=== PATIENT | female | born 1985 | race Caucasian/White ===

== ENCOUNTER 2020-02-04 02:50 | Inpatient (IN) | payer BC ==
[2020-02-04] MEDS ORDERED: Calcium Carbonate 500 MG Tab.Chew PO PRN (05:49)
[2020-02-04] MEDS ORDERED: Sodium Chloride 0.9% 10 ML Syringe FLUSH PRN (05:49)
[2020-02-04] MEDS ORDERED: Nalbuphine 10 MG/ML Syringe IVPUSH PRN (05:49)
[2020-02-04] MEDS ORDERED: Ondansetron 4 MG/2 ML SDV IVPUSH PRN (05:49)
[2020-02-04] MEDS ORDERED: Oxytocin/Lactated Ringers 10 UNIT/1,000 ML BAG IV SCH (06:00)
--- NOTE | 2020-02-04 07:08 | PCM.LDHP ---
L&D History of Present Illness - General Date of Service: 02/04/20 Admit Problem/Dx: Patient Status Order with Admit Dx/Problem 02/04/20 03:33 Patient Status [ADT] Routine 02/04/20 05:50 Patient Status [ADT] Routine Admission Diagnosis/Problem Admission Diagnosis/Problem Source of Information: Patient History Limitations: Reports: No Limitations - History of Present Illness Introduction:: Patient is a 35 y/o at 38 2/7 wks who presents in early labor. Came in to hospital in early AM and was 3 cm. Found to make change to 4 cm on RN next assessment in 2 hours. Currently doing well. Notes contractions manageable - Related Data Allergies/Adverse Reactions: Allergies Allergy/AdvReac Type Severity Reaction Status Date / Time No Known Allergies Allergy Verified 02/04/20 05:44 Home Medications: Home Meds Magnesium 325 mg PO DAILY 02/04/20 [History] [id number]/Iron Fumarate/FA/DSS [ 19 Tablet] 1 each PO DAILY 02/04/20 [ History] Ranitidine [Zantac] 150 mg PO DAILY PRN 02/04/20 [History] Past Medical History [employer] History: Reports: : 2 Para: 1 LMP (Approximate): Psychiatric History: Reports: Anxiety Other Psychiatric History: Not currently on medication, states she has had some panic attacks recently, plans to start medication after Endocrine/Metabolic History: Reports: Diabetes, Gestational (history of) - Infectious Disease History Infectious Disease History: Reports: Human Papilloma Virus (HPV) - Past Surgical History Female Surgical History: Reports: LEEP Social & Family History - Family History Family Medical History: Noncontributory - Tobacco Use Smoking Status *Q: Former Smoker Years of Tobacco use: 2 Used Tobacco, but Quit: Yes Month/Year Tobacco Last Used: 2004 - Alcohol Use Alcohol Use History: No - Recreational Drug Use Recreational Drug Use: No H&P Review of Systems - Review of Systems: Review Of Systems: See Below General: Reports: No Symptoms Pulmonary: Reports: No Symptoms Cardiovascular: Reports: No Symptoms Gastrointestinal: Reports: Abdominal Pain Genitourinary: Reports: No Symptoms Musculoskeletal: Reports: No Symptoms Psychiatric: Reports: No Symptoms Neurological: Reports: No Symptoms L&D Exam - Exam Exam: See Below - Vital Signs Vital Signs: Last Vital Signs Temp 36.7 C 02/04/20 03:08 Pulse 92 02/04/20 03:08 Resp 16 02/04/20 03:08 BP 115/75 02/04/20 03:08 Pulse Ox 98 02/04/20 03:08 Weight: 93.44 kg - OB Specific Contraction Intensity: Mild to Moderate Movement: Active Heart Tones: Present Heart Tones per Min: 145 Heart Rate (FHR) Variability: Moderate (6-25 bmp) Presentation: Vertex - Adame Score Adame Score Cervix Position: Midposition Adame Score Consistency: Soft Adame Score Effacement: 31-50% Adame Score Dilation: 3-4 cm Adame Score Infant's Station: -2 Adame Score Total: 7 - Exam General: Alert, Oriented, Cooperative Lungs: Clear to Auscultation, Normal Respiratory Effort Cardiovascular: Regular Rate, Regular Rhythm GI/Abdominal Exam: Soft, Non-Tender Genitourinary: Normal external exam Back Exam: Normal Inspection Extremities: Normal Inspection Skin: Warm, Dry, Intact - Patient Data Lab Results Last 24 hrs: Laboratory Results - last 24 hr 02/04/20 Range/Units 06:05 WBC 11.65 H (3.98-10.04) K/mm3 RBC 4.02 (3.98-5.22) M/mm3 Hgb 12.1 (11.2-15.7) gm/dl Hct 36.8 (34.1-44.9) % MCV 91.5 (79.4-94.8) fl MCH 30.1 (25.6-32.2) pg MCHC 32.9 (32.2-35.5) g/dl RDW Std Deviation 45.0 (36.4-46.3) fL Plt Count 211 (182-369) K/mm3 MPV 11.5 (9.4-12.3) fl Neut % (Auto) 71.0 (34.0-71.1) % Lymph % (Auto) 18.6 L (19.3-51.7) % [place] % (Auto) 8.7 (4.7-12.5) % Eos % (Auto) 1.0 (0.7-5.8) Baso % (Auto) 0.1 (0.1-1.2) % Neut # (Auto) 8.27 H (1.56-6.13) K/mm3 Lymph # (Auto) 2.17 (1.18-3.74) K/mm3 [place] # (Auto) 1.01 H (0.24-0.36) K/mm3 Eos # (Auto) 0.12 (0.04-0.36) K/mm3 Baso # (Auto) 0.01 (0.01-0.08) K/mm3 Result Diagrams: 02/04/20 06:05 - Problem List (1) 38 weeks gestation of SNOMED Code(s): 68344145 ICD Code: Z3A.38 - 38 WEEKS GESTATION OF Status: Acute Current Visit: Yes Problem List Initiated/Reviewed/Updated: Yes Orders Last 24hrs: Active Orders 24 hr Category Date Time Status Patient Status [ADT] Routine ADT 02/04/20 03:33 Active Patient Status [ADT] Routine ADT 02/04/20 05:50 Active Activity as Tolerated [RC] PFP Care 02/04/20 05:49 Active Communication Order [RC] ASDIRECTED Care 02/04/20 05:49 Active Heart Tones [RC] ASDIRECTED Care 02/04/20 05:50 Active Non Stress Test [RC] PER UNIT ROUTINE Care 02/04/20 03:33 Active Non Stress Test [RC] PER UNIT ROUTINE Care 02/04/20 05:49 Active Notify Provider [RC] PFP Care 02/04/20 05:49 Active Notify Provider [RC] PRN Care 02/04/20 05:49 Active Peripheral IV Care [RC] . DIRECTED Care 02/04/20 05:50 Active Pump Management, Intrathecal [RC] ASDIRECTED Care 02/04/20 05:51 Active Vital Signs [RC] PER UNIT ROUTINE Care 02/04/20 03:33 Active Vital Signs [RC] PER UNIT ROUTINE Care 02/04/20 05:49 Active Regular Diet [DIET] Diet 02/04/20 Breakfast Active RAPID PLASMA REAGIN,RPR [CHEM] Routine Lab 02/04/20 06:05 Received TYPE AND SCREEN [BBK] Stat Lab 02/04/20 06:05 Received Calcium Carbonate [Tums] Med 02/04/20 05:49 Active 1,000 mg PO Q2H PRN Lactated Ringers [Ringers, Lactated] 1,000 ml Med 02/04/20 06:00 Active IV ASDIRECTED Nalbuphine [Nubain] Med 02/04/20 05:49 Active 10 mg IVPUSH Q2H PRN Ondansetron [Zofran] Med 02/04/20 05:49 Active 4 mg IVPUSH Q4H PRN Oxytocin/Lactated Ringers [Pitocin in LR 10 Units/1,000 Med 02/04/20 06:00 Active ML] 10 unit in 1,000 ml IV TITRATE Sodium Chloride 0.9% [Saline Flush] Med 02/04/20 05:49 Active 10 ml FLUSH ASDIRECTED PRN Electronic Heart Tones Ext w TOCO [WOMSER] Ot 02/04/20 05:49 Ordered Routine Electronic Heart Tones Internal [WOMSER] Per Unit Ot 02/04/20 05:49 Ordered Routine Peripheral IV Insertion Adult [OM.PC] Routine Ot 02/04/20 05:49 Ordered Resuscitation Status Routine Resus Stat 02/04/20 03:33 Ordered Medication Orders Calcium Carbonate/Glycine (Tums) 1,000 mg PO Q2H PRN PRN Reason: Indigestion Lactated Ringer's (Ringers, Lactated) 1,000 mls @ 100 mls/hr IV ASDIRECTED MUNIRA Oxytocin/Lactated Ringer's (Pitocin In Lr 10 Units/1,000 Ml) 10 unit in 1,000 mls @ 12 mls/hr IV TITRATE MUNIRA; Protocol Nalbuphine HCl (Nubain) 10 mg IVPUSH Q2H PRN PRN Reason: Pain Ondansetron HCl (Zofran) 4 mg IVPUSH Q4H PRN PRN Reason: Nausea/Vomiting Sodium Chloride (Saline Flush) 10 ml FLUSH ASDIRECTED PRN PRN Reason: Keep Vein Open Assessment/Plan Comment:: * Labs done * GBS negative * AROM performed * Pain management per patient preference * Anticipate
[2020-02-04] MEDS ORDERED: fentaNYL 100 MCG/2 ML SDV EPIDUR PRN (07:31)
[2020-02-04] MEDS ORDERED: Bupivacaine/fentaNYL/NS 100 ML Bag EPIDUR PRN (07:31)
[2020-02-04] MEDS ORDERED: ePHEDrine 50 MG/ML SDV IVPUSH PRN (07:31)
[2020-02-04] MEDS ORDERED: diphenhydrAMINE 50 MG/ML SDV IVPUSH PRN (07:31)
--- NOTE | 2020-02-04 07:51 | PCM.PREANE ---
Preanesthetic Assessment - Procedure Proposed Procedure: kim - Anesthesia/Transfusion/Family Hx Anesthesia History: Prior Anesthesia Without Reaction Family History of Anesthesia Reaction: No Transfusion History: No Prior Transfusion(s) - Review of Systems General: No Symptoms Pulmonary: Cough (little bit- allergy induced) Cardiovascular: No Symptoms, Palpitations (heart races prn- anxiety) Gastrointestinal: No Symptoms Neurological: No Symptoms Other: Reports: Anxiety - Physical Assessment Vital Signs: Last Vital Signs Temp 98.1 F 02/04/20 03:08 Pulse 92 02/04/20 03:08 Resp 16 02/04/20 03:08 BP 115/75 02/04/20 03:08 Pulse Ox 98 02/04/20 03:08 Height: 5 ft 5 in Weight: 93.44 kg ASA Class: 2 Mental Status: Alert & Oriented x3 Airway Class: Mallampati = 1 Dentition: Reports: Normal Dentition Thyro-Mental Finger Breadths: 3 Mouth Opening Finger Breadths: 3 ROM/Head Extension: Full Lungs: Clear to Auscultation, Normal Respiratory Effort Cardiovascular: Regular Rate, Regular Rhythm - Lab Values: Laboratory Last Values WBC 11.65 K/mm3 (3.98-10.04) H 02/04/20 06:05 RBC 4.02 M/mm3 (3.98-5.22) 02/04/20 06:05 Hgb 12.1 gm/dl (11.2-15.7) 02/04/20 06:05 Hct 36.8 % (34.1-44.9) 02/04/20 06:05 MCV 91.5 fl (79.4-94.8) 02/04/20 06:05 MCH 30.1 pg (25.6-32.2) 02/04/20 06:05 MCHC 32.9 g/dl (32.2-35.5) 02/04/20 06:05 RDW Std Deviation 45.0 fL (36.4-46.3) 02/04/20 06:05 Plt Count 211 K/mm3 (182-369) 02/04/20 06:05 MPV 11.5 fl (9.4-12.3) 02/04/20 06:05 Neut % (Auto) 71.0 % (34.0-71.1) 02/04/20 06:05 Lymph % (Auto) 18.6 % (19.3-51.7) L 02/04/20 06:05 [place] % (Auto) 8.7 % (4.7-12.5) 02/04/20 06:05 Eos % (Auto) 1.0 (0.7-5.8) 02/04/20 06:05 Baso % (Auto) 0.1 % (0.1-1.2) 02/04/20 06:05 Neut # (Auto) 8.27 K/mm3 (1.56-6.13) H 02/04/20 06:05 Lymph # (Auto) 2.17 K/mm3 (1.18-3.74) 02/04/20 06:05 [place] # (Auto) 1.01 K/mm3 (0.24-0.36) H 02/04/20 06:05 Eos # (Auto) 0.12 K/mm3 (0.04-0.36) 02/04/20 06:05 Baso # (Auto) 0.01 K/mm3 (0.01-0.08) 02/04/20 06:05 - Allergies Allergies/Adverse Reactions: Allergies Allergy/AdvReac Type Severity Reaction Status Date / Time No Known Allergies Allergy Verified 02/04/20 05:44 - Blood Blood Available: No - Acknowledgements Anesthesia Type Planned: Epidural Pt an Appropriate Candidate for the Planned Anesthesia: Yes Alternatives and Risks of Anesthesia Discussed w Pt/Guardian: Yes Pt/Guardian Understands and Agrees with Anesthesia Plan: Yes PreAnesthesia Questionnaire Cardiovascular History: Reports: None Respiratory History: Reports: None Gastrointestinal History: Reports: GERD (with preg) : 2 (38 weeks) Para: 1 Psychiatric History: Reports: Anxiety Other Psychiatric History: Not currently on medication, states she has had some panic attacks recently, plans to start medication after Oncologic (Cancer) History: Reports: None - Infectious Disease History Infectious Disease History: Reports: Human Papilloma Virus (HPV) Other Infectious Disease History: over 15 years ago HPV - Past Surgical History Female Surgical History: Reports: LEEP - SUBSTANCE USE Smoking Status *Q: Former Smoker Tobacco Use Within Last Twelve Months: No Second Hand Smoke Exposure: No Days Per Week of Alcohol Use: 0 Recreational Drug Use History: No - HOME MEDS Home Medications: Home Meds Magnesium 325 mg PO DAILY 02/04/20 [History] QOT912/Iron Fumarate/FA/DSS [ 19 Tablet] 1 each PO DAILY 02/04/20 [ History] Ranitidine [Zantac] 150 mg PO DAILY PRN 02/04/20 [History] - CURRENT (IN HOUSE) MEDS Current Meds: Current Medications Calcium Carbonate/Glycine (Tums) 1,000 mg PO Q2H PRN PRN Reason: Indigestion Diphenhydramine HCl (Benadryl) 25 mg IVPUSH Q6H PRN PRN Reason: Itching Ephedrine Sulfate (Ephedrine Sulfate) 5 mg IVPUSH ASDIRECTED PRN PRN Reason: HYPOTENTSION Fentanyl (Sublimaze) 100 mcg EPIDUR Q3H PRN PRN Reason: Pain Fentanyl/Bupivacaine HCl (Fentanyl/Bupivacaine/Ns 2 Mcg-0.125% 100 Ml) 100 ml EPIDUR CONTINUOUS PRN PRN Reason: Pain Lactated Ringer's (Ringers, Lactated) 1,000 mls @ 100 mls/hr IV ASDIRECTED MUNIRA Oxytocin/Lactated Ringer's (Pitocin In Lr 10 Units/1,000 Ml) 10 unit in 1,000 mls @ 12 mls/hr IV TITRATE MUNIRA; Protocol Nalbuphine HCl (Nubain) 10 mg IVPUSH Q2H PRN PRN Reason: Pain Ondansetron HCl (Zofran) 4 mg IVPUSH Q4H PRN PRN Reason: Nausea/Vomiting Sodium Chloride (Saline Flush) 10 ml FLUSH ASDIRECTED PRN PRN Reason: Keep Vein Open
[2020-02-04] MEDS ORDERED: Lidocaine 1.5% with EPINEPHrine 1:200,000 5 ML Amp ONE (10:00)
[2020-02-04] MEDS: Lactated Ringers 1,000 ML IV SCH ×2 (10:21→14:09)
--- NOTE | 2020-02-04 16:51 | PCM.DEL ---
L & D Note - General Info Date of Service: 02/04/20 - Delivery Note Labor: Augmented by ARM, Augmented by Oxytocin Delivery Outcome: Livebirth Infant Delivery Method: Spontaneous Vaginal Delivery-Single Delivery Mode: Spontaneous Presentation: Left Occiput Anterior (ROBERT) Nuchal Cord: Present, Reduced Anesthesia Type: Epidural Amniotic Fluid Description: Clear Episiotomy Type: None Laceration: None Placenta: Intact, Spontaneous Cord: 3 Vessels Estimated Blood Loss: 100 [place]: Suctioned, Bulb Syringe, Stimulated, Warmed, [place] Used, Warmer Used Delivery Comments (Free Text/Narrative):: Patient found to be complete and began pushing. With maternal pushing effort head delivered from an ROBERT presentation. Nuchal cord present and reduced. With gentle downward traction shoulders did not immediately deliver and head noted to retract against perineum. Patient put in deeper Panfilo which still did not relieve dystocia. Suprapubic then applied with deep Panfilo and anterior shoulder be delivered with remaining body quickly following. Total time about 45 seconds. Cord clamped and cut and baby taken to warmer for assessment. Cord blood collected. Placenta allowed time to separate and expelled intact. Inspection of the perineum showed no lacerations - General Info Date of Service: 02/04/20 - Patient Data Vitals - Most Recent: Last Vital Signs Temp 36.7 C 02/04/20 03:08 Pulse 92 02/04/20 03:08 Resp 16 02/04/20 03:08 BP 115/75 02/04/20 03:08 Pulse Ox 98 02/04/20 03:08 Weight - Most Recent: 93.44 kg Lab Results Last 24 Hours: Laboratory Results - last 24 hr 02/04/20 02/04/20 Range/Units 06:05 06:05 WBC 11.65 H (3.98-10.04) K/mm3 RBC 4.02 (3.98-5.22) M/mm3 Hgb 12.1 (11.2-15.7) gm/dl Hct 36.8 (34.1-44.9) % MCV 91.5 (79.4-94.8) fl MCH 30.1 (25.6-32.2) pg MCHC 32.9 (32.2-35.5) g/dl RDW Std Deviation 45.0 (36.4-46.3) fL Plt Count 211 (182-369) K/mm3 MPV 11.5 (9.4-12.3) fl Neut % (Auto) 71.0 (34.0-71.1) % Lymph % (Auto) 18.6 L (19.3-51.7) % [place] % (Auto) 8.7 (4.7-12.5) % Eos % (Auto) 1.0 (0.7-5.8) Baso % (Auto) 0.1 (0.1-1.2) % Neut # (Auto) 8.27 H (1.56-6.13) K/mm3 Lymph # (Auto) 2.17 (1.18-3.74) K/mm3 [place] # (Auto) 1.01 H (0.24-0.36) K/mm3 Eos # (Auto) 0.12 (0.04-0.36) K/mm3 Baso # (Auto) 0.01 (0.01-0.08) K/mm3 Blood Type O POSITIVE Gel Antibody Screen Negative Med Orders - Current: Current Medications Calcium Carbonate/Glycine (Tums) 1,000 mg PO Q2H PRN PRN Reason: Indigestion Diphenhydramine HCl (Benadryl) 25 mg IVPUSH Q6H PRN PRN Reason: Itching Ephedrine Sulfate (Ephedrine Sulfate) 5 mg IVPUSH ASDIRECTED PRN PRN Reason: HYPOTENTSION Fentanyl (Sublimaze) 100 mcg EPIDUR Q3H PRN PRN Reason: Pain Last Admin: 02/04/20 12:39 Dose: 100 mcg Fentanyl/Bupivacaine HCl (Fentanyl/Bupivacaine/Ns 2 Mcg-0.125% 100 Ml) 100 ml EPIDUR CONTINUOUS PRN PRN Reason: Pain Last Admin: 02/04/20 12:39 Dose: 100 ml Lactated Ringer's (Ringers, Lactated) 1,000 mls @ 100 mls/hr IV ASDIRECTED MUNIRA Last Admin: 02/04/20 14:09 Dose: 100 mls/hr Oxytocin/Lactated Ringer's (Pitocin In Lr 10 Units/1,000 Ml) 10 unit in 1,000 mls @ 12 mls/hr IV TITRATE MUNIRA; Protocol Last Titration: 02/04/20 12:43 Dose: 6 munits/min, 36 mls/hr Nalbuphine HCl (Nubain) 10 mg IVPUSH Q2H PRN PRN Reason: Pain Ondansetron HCl (Zofran) 4 mg IVPUSH Q4H PRN PRN Reason: Nausea/Vomiting Sodium Chloride (Saline Flush) 10 ml FLUSH ASDIRECTED PRN PRN Reason: Keep Vein Open - Problem List & Annotations (1) 38 weeks gestation of SNOMED Code(s): 64072572 Code(s): Z3A.38 - 38 WEEKS GESTATION OF Status: Acute Current Visit: Yes (2) Vaginal delivery SNOMED Code(s): 490627854 Code(s): O80 - ENCOUNTER FOR FULL-TERM UNCOMPLICATED DELIVERY Status: Acute Current Visit: Yes (3) Shoulder dystocia, delivered, current hospitalization SNOMED Code(s): 649221973, 304942018 Code(s): O66.0 - OBSTRUCTED LABOR DUE TO SHOULDER DYSTOCIA Status: Acute Current Visit: Yes - Problem List Review Problem List Initiated/Reviewed/Updated: Yes - My Orders Last 24 Hours: My Active Orders 02/04/20 03:33 Patient Status [ADT] Routine Resuscitation Status Routine 02/04/20 05:49 Activity as Tolerated [RC] PFP Communication Order [RC] ASDIRECTED Notify Provider [RC] PFP Notify Provider [RC] PRN Calcium Carbonate [Tums] 1,000 mg PO Q2H PRN Nalbuphine [Nubain] 10 mg IVPUSH Q2H PRN Ondansetron [Zofran] 4 mg IVPUSH Q4H PRN Sodium Chloride 0.9% [Saline Flush] 10 ml FLUSH ASDIRECTED PRN Electronic Heart Tones Ext w TOCO [WOMSER] Routine Electronic Heart Tones Internal [WOMSER] Per Unit Routine Peripheral IV Insertion Adult [OM.PC] Routine 02/04/20 05:50 Patient Status [ADT] Routine Heart Tones [RC] ASDIRECTED Peripheral IV Care [RC] . DIRECTED 02/04/20 05:51 Pump Management, Intrathecal [RC] ASDIRECTED 02/04/20 06:00 Lactated Ringers [Ringers, Lactated] 1,000 ml IV ASDIRECTED Oxytocin/Lactated Ringers [Pitocin in LR 10 Units/1,000 ML] 10 unit in 1,000 ml IV TITRATE 02/04/20 06:05 RAPID PLASMA REAGIN,RPR [CHEM] Routine 02/04/20 07:58 PATIENT RETYPE [BBK] Routine 02/04/20 Breakfast Regular Diet [DIET] - Assessment Assessment:: PPD#0 - Plan Plan:: * Routine care * breast feeding * Discharge home in 1-2 days
[2020-02-04] MEDS ORDERED: Docusate Sodium 100 MG Cap PO PRN (17:01)
[2020-02-04] MEDS ORDERED: Witch Hazel Medicated Pads 40/Jar TOP PRN (17:01)
[2020-02-04] MEDS ORDERED: Ibuprofen 600 MG Tab PO PRN (17:01)
[2020-02-04] MEDS ORDERED: Benzocaine/Menthol 20%-0.5% Spray 56 GM Canister TOP PRN (17:01)
[2020-02-04] MEDS ORDERED: Acetaminophen 325 MG Tab PO PRN (17:01)
--- NOTE | 2020-02-05 09:37 | PCM.SN ---
- Free Text/Narrative Note: Post Progress Note PPD #1 Subjective: Doing well overall. Ambulating without difficulty. Lochia minimal. Voiding without difficulty. Tolerating regular diet without nausea or vomiting. Pain overall controlled with oral medications but does feel some soreness in her low back and pelvis. Breast-feeding with minimal difficulty. Objective: Vitals: Vital Signs - 24 hr 02/04/20 02/05/20 02/05/20 20:13 03:40 08:10 Temperature 36.6 C 36.8 C 36.4 C Pulse, 94 85 89 Peripheral Respiratory 14 14 14 Rate Blood Pressure 124/74 101/76 117/66 O2 Sat by Pulse 96 94 L 98 Oximetry Physical Exam General: Alert and oriented, no acute distress Lungs: Clear to auscultation bilaterally Heart: Regular rate and rhythm Abdomen: Soft, minimal appropriate tenderness, non-distended, fundus midline, nontender, and at the umbilicus Extremities: Trace edema in bilateral lower extremities to mid shins ASSESSMENT: 35-year-old female -0-0-2 s/p normal vaginal delivery PPD #1, complicated by shoulder dystocia with delivery, history of gestational diabetes and advanced maternal age PLAN: Doing well Breast-feeding with minimal difficulty. Assist as needed Lochia minimal. Continue to monitor for appropriate lochia. Continue routine care Anticipate discharge home today Maciej Wilson MD 9:36 AM 02/05/2020 TeleHealth - TeleHealth Patient Service Facility: [facility]: [facility] Informed Consent: Telemedicine Audio/Visual Informed Consent: The risks, benefits, and alternatives to the telehealth visit were explained to the patient and the patient consented to this modality of care. The telehealth visit was carried out via a secure, web-based conferencing system. This telemedicine service was a real-time, two-way interactive video and communication between the patient and the provider. All the parties involved were identified and approved by the patient prior to the visit. Any physical exam was assisted by the patient. Unless noted otherwise, the provider was located at their usual clinic location , and the patient was at their place of residence. Patient identity was confirmed by having the patient state their name and date of . All communications with the patient (verbal, audiovisual, and written) were documented in the patients medical record per documentation standards.
--- NOTE | 2020-02-05 09:45 | PCM.DCSUM1 ---
Discharge Summary - Hospital Course Free Text/Narrative:: - Delivery Note Labor: Augmented by ARM, Augmented by Oxytocin Delivery Outcome: Livebirth Delivery Method: Spontaneous Vaginal Delivery-Single Infant Delivery Mode: Spontaneous Presentation: Left Occiput Anterior (ROBERT) Nuchal Cord: Present, Reduced Anesthesia Type: Epidural Amniotic Fluid Description: Clear Episiotomy Type: None Laceration: None Placenta: Intact, Spontaneous Cord: 3 Vessels Estimated Blood Loss: 100 : Suctioned, Bulb Syringe, Stimulated, Warmed, Sacaton Used, Warmer Used Delivery Comments (Free Text/Narrative):: Patient found to be complete and began pushing. With maternal pushing effort head delivered from an ROBERT presentation. Nuchal cord present and reduced. With gentle downward traction shoulders did not immediately deliver and head noted to retract against perineum. Patient put in deeper Panfilo which still did not relieve dystocia. Suprapubic then applied with deep Panfilo and anterior shoulder be delivered with remaining body quickly following. Total time about 45 seconds. Cord clamped and cut and baby taken to warmer for assessment. Cord blood collected. Placenta allowed time to separate and expelled intact. Inspection of the perineum showed no lacerations HPI Initial Comments: - Delivery Note Labor: Augmented by ARM, Augmented by Oxytocin Delivery Outcome: Livebirth Infant Delivery Method: Spontaneous Vaginal Delivery-Single Delivery Mode: Spontaneous Presentation: Left Occiput Anterior (ROBERT) Nuchal Cord: Present, Reduced Anesthesia Type: Epidural Amniotic Fluid Description: Clear Episiotomy Type: None Laceration: None Placenta: Intact, Spontaneous Cord: 3 Vessels Estimated Blood Loss: 100 : Suctioned, Bulb Syringe, Stimulated, Warmed, Sacaton Used, Warmer Used Delivery Comments (Free Text/Narrative):: Patient found to be complete and began pushing. With maternal pushing effort head delivered from an ROBERT presentation. Nuchal cord present and reduced. With gentle downward traction shoulders did not immediately deliver and head noted to retract against perineum. Patient put in deeper Panfilo which still did not relieve dystocia. Suprapubic then applied with deep Panfilo and anterior shoulder be delivered with remaining body quickly following. Total time about 45 seconds. Cord clamped and cut and baby taken to warmer for assessment. Cord blood collected. Placenta allowed time to separate and expelled intact. Inspection of the perineum showed no lacerations Brief History: - Delivery Note. Labor: Augmented by ARM, Augmented by Oxytocin. Delivery Outcome: Livebirth. Delivery Method: Spontaneous Vaginal Delivery-Single. Delivery Mode: Spontaneous. Presentation : Left Occiput Anterior (ROBERT). Nuchal Cord: Present, Reduced. Anesthesia Type : Epidural. Amniotic Fluid Description: Clear. Episiotomy Type: None. Laceration: None. Placenta: Intact, Spontaneous. Cord: 3 Vessels. Estimated Blood Loss: 100. Hubbard: Suctioned, Bulb Syringe, Stimulated, Warmed, Sacaton Used, Warmer Used. Delivery Comments (Free Text/Narrative):: Patient found to be complete and began pushing. With maternal pushing effort head delivered from an ROBERT presentation. Nuchal cord present and reduced. With gentle downward traction shoulders did not immediately deliver and head noted to retract against perineum. Patient put in deeper Panfilo which still did not relieve dystocia. Suprapubic then applied with deep Panfilo and anterior shoulder be delivered with remaining body quickly following. Total time about 45 seconds. Cord clamped and cut and baby taken to warmer for assessment. Cord blood collected. Placenta allowed time to separate and expelled intact. Inspection of the perineum showed no lacerations Diagnosis: Stroke: No - Discharge Data Discharge Date: 02/05/20 Discharge Disposition: Home, Self-Care 01 Condition: Good - Referral to Home Health Primary Care Physician: Mami Trinh MD - Discharge Diagnosis/Problem(s) (1) 38 weeks gestation of SNOMED Code(s): 79958463 ICD Code: Z3A.38 - 38 WEEKS GESTATION OF Status: Acute Current Visit: Yes (2) Shoulder dystocia, delivered, current hospitalization SNOMED Code(s): 160318670, 319631997 ICD Code: O66.0 - OBSTRUCTED LABOR DUE TO SHOULDER DYSTOCIA Status: Acute Current Visit: Yes (3) Vaginal delivery SNOMED Code(s): 160626117 ICD Code: O80 - ENCOUNTER FOR FULL-TERM UNCOMPLICATED DELIVERY Status: Acute Current Visit: Yes - Patient Summary/Data Complications: Mild shoulder dystocia during delivery the lasted for approximately 45 seconds. Consults: None Hospital Course: Criss Hood was admitted for spontaneous labor. On admission her cervix was dilated to 3 cm. She was GBS negative. She was given pitocin for augmentation. She was given an epidural for anesthesia. She had artificial rupture of membranes with clear fluid. She progressed to complete and began pushing. On 02/04/2020 she had a normal vaginal delivery of a live female infant at 16:15. Apgars of 6 and 8. Weight of 3740 g (8 pounds 3.9 ounces). Her delivery was complicated by a mild shoulder dystocia that lasted for approximately 45 seconds. Her course was uneventful. Her pain was well controlled and she had minimal lochia. She was ambulating, tolerating a regular diet and voiding normally. She was breast-feeding with minimal difficulty. She was afebrile and her hematocrit was 36.8 on admission. She desired to be discharged home on the morning of PPD #1. Her blood type is O+. - Patient Instructions Diet: Regular Diet as Tolerated Activity: Apply Ice, As Tolerated Activity, Other: Nothing in the vagina for 6 weeks Driving: May Drive Today Showering/Bathing: May Shower Notify Provider of: Fever, Increased Pain, Swelling and Redness, Drainage, Nausea and/or Vomiting Other/Special Instructions: Please contact your physician's office if you have heavy vaginal bleeding enough to soak a pad in less than an hour for several hours. Monitor for any signs of an infection in the breasts with severe pain or redness of the breast. - Discharge Plan *PRESCRIPTION DRUG MONITORING PROGRAM REVIEWED*: Not Applicable *COPY OF PRESCRIPTION DRUG MONITORING REPORT IN PATIENT GALA: Not Applicable Home Medications: Home Meds Magnesium 325 mg PO DAILY 02/04/20 [History] [id number]/Iron Fumarate/FA/DSS [ 19 Tablet] 1 each PO DAILY 02/04/20 [ History] Ranitidine [Zantac] 150 mg PO DAILY PRN 02/04/20 [History] Acetaminophen [Tylenol] 650 mg PO Q6H PRN tablet 02/05/20 [Rx] Benzocaine/Menthol [Dermoplast Pain Relief [place]] 1 spray TOP ASDIRECTED PRN canister 02/05/20 [Rx] Docusate Sodium [Colace] 100 mg PO BID PRN cap 02/05/20 [Rx] Ibuprofen [Motrin] 600 mg PO Q6H PRN tablet 02/05/20 [Rx] witch Nuha [Tucks] 1 pad TOP ASDIRECTED PRN pad 02/05/20 [Rx] Patient Handouts: Care After Vaginal Delivery Referrals: Mami Trinh MD [Primary Care Provider] - (Follow-up in 6 weeks for routine visit or earlier as needed for any other problems as they may arise.) - Discharge Summary/Plan Comment DC Time >30 min.: No - Patient Data Vitals - Most Recent: Last Vital Signs Temp 36.4 C 02/05/20 08:10 Pulse 89 02/05/20 08:10 Resp 14 02/05/20 08:10 BP 117/66 02/05/20 08:10 Pulse Ox 98 02/05/20 08:10 Weight - Most Recent: 93.44 kg I&O - Last 24 hours: Intake & Output 02/04/20 02/05/20 02/05/20 22:59 06:59 14:59 Intake Total 2200 Balance 2200 Lab Results - Last 24 hrs: Laboratory Results - last 24 hr 02/04/20 Range/Units 06:05 RPR Non-reactive (NONREACTIVE) Med Orders - Current: Current Medications Acetaminophen (Tylenol) 650 mg PO Q4H PRN PRN Reason: mild pain or fever Benzocaine/Menthol (Dermoplast Pain Relief [place]) 0 gm TOP ASDIRECTED PRN PRN Reason: Perineal Comfort Measure Last Admin: 02/04/20 18:45 Dose: 1 can Docusate Sodium (Colace) 100 mg PO BID PRN PRN Reason: Constipation Ibuprofen (Motrin) 600 mg PO Q6H PRN PRN Reason: Mild pain or fever Witch Nuha (Tucks) 1 pad TOP ASDIRECTED PRN PRN Reason: Perineal Comfort Measure Discontinued Medications Calcium Carbonate/Glycine (Tums) 1,000 mg PO Q2H PRN PRN Reason: Indigestion Diphenhydramine HCl (Benadryl) 25 mg IVPUSH Q6H PRN PRN Reason: Itching Ephedrine Sulfate (Ephedrine Sulfate) 5 mg IVPUSH ASDIRECTED PRN PRN Reason: HYPOTENTSION Fentanyl (Sublimaze) 100 mcg EPIDUR Q3H PRN PRN Reason: Pain Last Admin: 02/04/20 12:39 Dose: 100 mcg Fentanyl/Bupivacaine HCl (Fentanyl/Bupivacaine/Ns 2 Mcg-0.125% 100 Ml) 100 ml EPIDUR CONTINUOUS PRN PRN Reason: Pain Last Admin: 02/04/20 12:39 Dose: 100 ml Lactated Ringer's (Ringers, Lactated) 1,000 mls @ 100 mls/hr IV ASDIRECTED MUNIRA Last Admin: 02/04/20 14:09 Dose: 100 mls/hr Oxytocin/Lactated Ringer's (Pitocin In Lr 10 Units/1,000 Ml) 10 unit in 1,000 mls @ 12 mls/hr IV TITRATE MUNIRA; Protocol Last Titration: 02/04/20 17:03 Dose: 250 mls/hr Lidocaine/Epinephrine (Xylocaine-Mpf 1.5% W/Epinephrine 1:200,000) 5 ml .ROUTE .[facility] ONE Stop: 02/04/20 10:01 Nalbuphine HCl (Nubain) 10 mg IVPUSH Q2H PRN PRN Reason: Pain Ondansetron HCl (Zofran) 4 mg IVPUSH Q4H PRN PRN Reason: Nausea/Vomiting Sodium Chloride (Saline Flush) 10 ml FLUSH ASDIRECTED PRN PRN Reason: Keep Vein Open
== END 2020-02-05 17:30 | disposition home or self-care (01) | DRG 560 ==
LOC: JD.OBCHECK 02:50 → JD.OB 02:50 → JD.OBCHECK 05:50 → OBSVTOIN 16:15 → JD.OB 16:16
PROVIDERS: ADMIT Obstetrics & Gynecology; ATTEND Obstetrics & Gynecology
PROC: 10E0XZZ Delivery of Products of Conception, External Approach (ICD-10-PCS; principal; 2020-02-04)
PROC: 10907ZC Drainage of Amniotic Fluid, Therapeutic from Products of Conception, Via Natural or Artificial Opening (ICD-10-PCS; 2020-02-04)
PROC: 3E0R3BZ Introduction of Anesthetic Agent into Spinal Canal, Percutaneous Approach (ICD-10-PCS; 2020-02-04)
PROC: 00HU33Z Insertion of Infusion Device into Spinal Canal, Percutaneous Approach (ICD-10-PCS; 2020-02-04)
DX: O69.81X0 Labor and delivery complicated by cord around neck, without compression, not applicable or unspecified (principal); O66.0 Obstructed labor due to shoulder dystocia; Z3A.38 38 weeks gestation of pregnancy; Z37.0 Single live birth; Z87.891 Personal history of nicotine dependence
CPT/HCPCS: 01967; 36415; 51702; 59025; 59409; 85025; 86592; 86850; 86900; 86901; A9270-GY; J2590; J3010; J7120